=== PATIENT | male | born 1945 | race Caucasian/White ===

== ENCOUNTER 2018-11-05 13:22 | Inpatient (IN) | payer OTHER ==
[~2018-11-05] VITALS: Ht 175.3 cm; Wt 72.6 kg
[2018-11-05 13:55] LABS: BASOPHIL % 0.7 % (0-2); PLATELET COUNT 248 x10^3mcL (130-400); RED CELL DISTRIBUTION WIDTH 13.6 % (11.5-14.5)
[2018-11-05 14:31] LABS: CALCIUM 9.2 mg/dL (8.5-10.1); CHLORIDE SERUM 107 mmol/L (98-107); CREATININE SERUM 0.9 mg/dL (0.7-1.3); GLUCOSE SERUM 98 mg/dL (74-106); SODIUM SERUM 142 mmol/L (136-145)
[2018-11-05 14:36] LABS: ALBUMIN 3.7 g/dL (3.4-5.0); ALKALINE PHOSPHATASE 63 U/L (46-116); ALT/SGPT 36 U/L (16-63); AST/SGOT 15 U/L (15-37); BILIRUBIN TOTAL 0.7 mg/dL (0.20-1.00); TOTAL PROTEIN, SERUM 6.9 g/dL (6.4-8.2)
[2018-11-05] MEDS ORDERED: GOOD SENSE OMEP20 MG PO (15:38)
[2018-11-05] MEDS ORDERED: ASPIR 8181 MG PO (15:39)
[2018-11-05 16:01] VITALS: BP 150/73
[2018-11-05 16:06] VITALS: Ht 175.3 cm; Wt 72.6 kg
[2018-11-05 17:02] LABS: CHOLESTEROL/HDL RATIO 3.8; MAGNESIUM 2.1 mg/dL (1.8-2.4)
[2018-11-05 21:04] LABS: microscopic required? NO
[2018-11-05 21:15] LABS: urine erythrocyte NEGATIVE (NEGATIVE)
[2018-11-05 21:19] VITALS: BP 117/74
[2018-11-05 21:19] LABS: AMPHETAMINE QUAL UR NONE DETECTED (See below)
[2018-11-06 05:50] VITALS: BP 107/54
[2018-11-06 07:03] LABS: BASOPHIL % 0.7 % (0-2); PLATELET COUNT 252 x10^3mcL (130-400); RED CELL DISTRIBUTION WIDTH 13.7 % (11.5-14.5)
[2018-11-06 07:49] LABS: CALCIUM 9.5 mg/dL (8.5-10.1); CARBON DIOXIDE 26.1 mmol/L (21-32); CHLORIDE SERUM 107 mmol/L (98-107); GLUCOSE SERUM 96 mg/dL (74-106); POTASSIUM SERUM 4.2 mmol/L (3.5-5.1); SODIUM SERUM 144 mmol/L (136-145)
[2018-11-06 09:30] VITALS: BP 112/67
[2018-11-06 12:00] VITALS: BP 127/65
[2018-11-06 17:11] VITALS: BP 109/73
[2018-11-06 17:52] VITALS: BP 109/73
== END 2018-11-06 20:15 | disposition other institution (70) | DRG 313 ==
LOC: ED 13:22 → DU 14:47
PROVIDERS: Emergency Medicine; ADMIT Internal Medicine
DX: R07.89 Other chest pain (principal); K21.9 Gastro-esophageal reflux disease without esophagitis; I25.10 Atherosclerotic heart disease of native coronary artery without angina pectoris; K27.9 Peptic ulcer, site unspecified, unspecified as acute or chronic, without hemorrhage or perforation; R09.1 Pleurisy
CPT/HCPCS: A9500; J2785; Q0092